=== PATIENT | male | born 1990 | race Caucasian/White ===

== ENCOUNTER 2018-09-11 07:22 | Emergency (ER) | payer MEDICAID ==
[~2018-09-11] VITALS: Ht 175.3 cm; Wt 68.2 kg
[2018-09-11 07:24] VITALS: BP 153/68
[2018-09-11] MEDS ORDERED: IBUPROFEN 600 MG TABLET PO ONE (08:15)
[2018-09-11] MEDS ORDERED: CYCLOBENZAPRINE HCL 10 MG TABLET PO ONE (08:15)
== END 2018-09-11 08:41 | disposition home or self-care (01) ==
LOC: EMS 07:22
DX: M54.6 Pain in thoracic spine (principal); F17.210 Nicotine dependence, cigarettes, uncomplicated
CPT/HCPCS: 99406

== ENCOUNTER 2018-09-17 06:45 | Emergency (ER) | payer MEDICAID ==
[~2018-09-17] VITALS: Ht 170.2 cm; Wt 63.2 kg
[2018-09-17 07:58] VITALS: BP 124/78
[2018-09-17] MEDS ORDERED: CefTRIAXone SODIUM 1 GM/VIAL IM ONE (08:00)
[2018-09-17] MEDS ORDERED: DEXAMETHASONE SOD PHOS 4 MG/ML 5 ML VIAL IM ONE (08:00)
[2018-09-17] MEDS ORDERED: LIDOCAINE/PF 1% 2 ML VIAL IM ONE (08:00)
== END 2018-09-17 08:32 | disposition home or self-care (01) ==
LOC: EMS 06:45
DX: J03.90 Acute tonsillitis, unspecified (principal); F12.90 Cannabis use, unspecified, uncomplicated
CPT/HCPCS: 96372; 99283; J0696; J1100; J3490

== ENCOUNTER 2023-02-06 14:16 | Emergency (ER) | payer MEDICAID, OTHER ==
[~2023-02-06] VITALS: Ht 170.2 cm; Wt 67.7 kg
[2023-02-06 14:21] VITALS: BP 136/85
[2023-02-06] MEDS ORDERED: CEPH-558 PO (16:25)
[2023-02-06] MEDS ORDERED: SULF-261 PO (16:29)
[2023-02-06] MEDS ORDERED: PERTUSS(ACELL),DIPH,TET VAC/PF 0.5 ML SYRINGE IM. ONE (16:30)
[2023-02-06] MEDS ORDERED: IBUP-1492 PO (16:31)
== END 2023-02-06 16:43 | disposition home or self-care (01) ==
LOC: EMS 14:23
DX: L03.113 Cellulitis of right upper limb (principal); F12.90 Cannabis use, unspecified, uncomplicated; F15.10 Other stimulant abuse, uncomplicated
CPT/HCPCS: 90471; 90715; 99283